=== PATIENT | female | born 1970 | race Caucasian/White ===

== ENCOUNTER → 2017-01-16 | Outpatient (CLI) | payer OTHER | LOC: FIMAGING 17:57 | PROVIDERS: ATTEND General Practice | DX: R05 Cough (principal); R09.89 Other specified symptoms and signs involving the circulatory and respiratory systems ==

== ENCOUNTER 2017-02-01 22:36 | Emergency (ER) | payer OTHER ==
[2017-02-01 22:41] VITALS: TEMP 97.9
[2017-02-01] MEDS ORDERED: NS 1,000 ML IV ONE (22:49)
--- NOTE | 2017-02-01 22:49 | EDPHY ---
H & P Stated Complaint: SOB x several days, chest "constricted" x1h, SAAB HPI/ROS: HPI CHIEF COMPLAINT: Multiple complaints, headache, shortness of breath HISTORY OF PRESENT ILLNESS: This patient very pleasant 38-year-old female denies any significant medical history does not take any daily medications, she presents emergency room at 11 o'clock at night after she has been having a headache pretty consistent for the past month globally in nature throbbing in nature. She tells me over the last year she has had somewhat of an ice pack headache on the left side but over the last month she has had a global headache. Tonight she became flushed without nausea or vomiting she states her whole body felt like a cold sweat she felt associated shortness of breath with this and felt like her lungs were being constricted. She denies significant chest pain. She does tell me that she had some sharp pain under her left posterior scapula. She denies any recent fever. She states that she was recently still sick with a upper respiratory tract infection that settled into her chest she has been over that. She states that she has been dealing with some low lying shortness of breath over the past few weeks she seen her primary care doctor and primary care doctor referred her to [facility] for pulmonary testing also referred her to a neurologist for these headaches. She decided come to the emergency room tonight due to the constellation of feeling slightly flushed, headache, what she describes lung restriction, and a cough. She does additionally tell me that she ran 6 miles today without any difficulty and did not have any chest pain. She also tells me she has had a daily cough. Past Medical History: Denies any medical history Past Surgical History: Denies any recent surgical history Social History: Denies daily use of drugs tobacco or alcohol, raise her children not employed Family History: Noncontributory ROS REVIEW OF SYSTEMS: A comprehensive 10 point review of systems is otherwise negative aside from elements mentioned in the history of present illness. Exam Constitutional appears well nontoxic triage nursing summary reviewed, vital signs reviewed, awake/alert. Eyes normal conjunctivae and sclera, EOMI, PERRLA. HENT normal inspection, atraumatic, moist mucus membranes, no epistaxis, neck supple/ no meningismus, no raccoon eyes. Respiratory clear to auscultation bilaterally, normal breath sounds, no respiratory distress, no wheezing. Cardiovascular rate normal, regular rhythm, no murmur, no edema, distal pulses normal. Gastrointestinal soft, non-tender, no rebound, no guarding, normal bowel sounds, no distension, no pulsatile mass. Genitourinary no CVA tenderness. Musculoskeletal no midline vertebral tenderness, full range of motion, no calf swelling, no tenderness of extremities, no meningismus, good pulses, neurovascularly intact. Skin pink, warm, & dry, no rash, skin atraumatic. Neurologic awake, alert and oriented x 3, AAOx3, moves all 4 extremities equally, motor intact, sensory intact, CN II-XII intact, normal cerebellar, normal vision, normal speech. Psychiatric normal mood/affect. Heme/Lymph/Immune no lymphadenopathy. Differential Diagnosis: Includes but is not limited to in a particular order, pneumonia, bronchitis, asthma, pulmonary embolism, acute coronary syndrome, pneumothorax, migraine headache, intracranial tumor, brain bleed, sinus venous thrombosis Medical Decision Making: Plan for this patient with multiple complaints including shortness of breath, cough, headache, flushed, patient be placed on full line up worker showed have an EKG, check troponin, check D-dimer gentle IV hydration, DuoNeb breathing treatment to see if this improves her sensation of lung stricture and shortness of breath, two view chest x-ray, CT head without contrast. Re-evaluation: EKG interpretation by me on record in [employer] system. Impression time of EKG 2304: This EKG is normal sinus rhythm rate of 72 ST elevation consistent with early Lauren pulp pattern. Otherwise unremarkable EKG normal intervals. No acute ischemic changes seen on this EKG. ED x-ray chest two view: Negative for acute cardiopulmonary disease. Two- view. Normal lung olvera. Normal heart size. Image interpreted by myself. CT scan of the head without IV contrast The results of the study are negative for acute intracranial abnormality. The study was read by Dr. Sanderson. I viewed the images myself on the PACS system. EKG interpretation by me on record in [employer] system. Impression time of EKG 2:22 a.m., this is sinus rhythm at 68 no acute ischemic changes appreciated. Unchanged from previous EKG. 0307AM: ED could re-evaluate the patient she is resting comfortably no acute distress. Blood work has been reviewed CT head reviewed EKGs and troponins reviewed negative D-dimer. Patient's vital signs are stable at this time. She would like to go home she did sleep for while here in emergency room she has no chest pain or shortness of breath at this time. I will refer her to pulmonology for a chronic cough. And dyspnea. No indication to do a CT angiogram at this time of her chest. She is not tachycardic she has no hypoxia and she does not have a positive D-dimer. Recommend close follow up with pulmonology as well as Neurology. For chronic headaches. Source: Patient - Personal History LMP (Females 10-55): Over 28 Days Ago Current Tetanus/Diphtheria Vaccine: Unsure Current Tetanus Diphtheria and Acellular Pertussis (TDAP): Unsure - Medical/Surgical History Hx Asthma: No Hx Chronic Respiratory Disease: No Hx Diabetes: No Hx Cardiac Disease: No Hx Renal Disease: No Hx Cirrhosis: No Hx Alcoholism: No Hx HIV/AIDS: No Hx Splenectomy or Spleen Trauma: No Other PMH: HX: DENIES - Social History Smoking Status: Never smoked Constitutional: Initial Vital Signs Temperature (C) 36.6 C 02/01/17 22:37 Heart Rate 80 02/01/17 22:37 Respiratory Rate 20 02/01/17 22:37 Blood Pressure 133/86 H 02/01/17 22:37 O2 Sat (%) 97 02/01/17 22:37 O2 Delivery Mode Room Air Allergies/Adverse Reactions: Penicillins Allergy (Verified 05/01/14 08:57) Other-Enter Comments Home Medications: Medication Instructions Recorded NK [No Known Home Meds] 01/28/14 Medical Decision Making - Diagnostics Imaging Results: Imaging Impressions Chest X-Ray 02/01/17 22:49 Impression: Stable chest negative for acute cardiopulmonary abnormality. Head CT 02/01/17 23:01 Impression: Normal CT of the head. Specifically, a headache source is not identified. Results called and discussed with Holden Ayon MD on 02/01/2017 at 23:33 - Data Points Laboratory Results: Laboratory Results 02/01/17 22:55 02/01/17 22:55 02/02/17 02/01/17 02/01/17 02:16 22:55 22:55 WBC RBC Hgb Hct MCV MCH MCHC RDW Plt Count MPV Neut % (Auto) Lymph % (Auto) Haines % (Auto) Eos % (Auto) Baso % (Auto) Nucleat RBC Rel Count Absolute Neuts (auto) Absolute Lymphs (auto) Absolute Monos (auto) Absolute Eos (auto) Absolute Basos (auto) Absolute Nucleated RBC Immature Gran % Immature Gran # PT INR APTT D-Dimer Sodium 138 mEq/L mEq/L (134-144) Potassium 4.0 mEq/L mEq/L (3.5-5.2) Chloride 106 mEq/L mEq/L (97-110) Carbon Dioxide 23 mEq/l mEq/l (22-31) Anion Gap 9 mEq/L mEq/L (8-16) BUN 28 mg/dL H mg/dL (7-23) Creatinine 0.8 mg/dL mg/dL (0.6-1.0) Estimated GFR > 60 Glucose 90 mg/dL mg/dL (70-100) Calcium 9.2 mg/dL mg/dL (8.5-10.4) Magnesium 1.8 mg/dL mg/dL (1.6-2.3) Total Bilirubin 0.6 mg/dL mg/dL (0.1-1.4) Conjugated Bilirubin 0.3 mg/dL mg/dL (0.0-0.5) Unconjugated Bilirubin 0.3 mg/dL mg/dL (0.0-1.1) AST 22 IU/L IU/L (14-46) ALT 26 IU/L IU/L (9-52) Alkaline Phosphatase 42 IU/L IU/L (38-126) Creatine Kinase 58 IU/L IU/L (0-156) CK-MB (CK-2) Fraction 1.01 ng/mL ng/mL (0-3.19) Troponin I < 0.012 ng/mL ng/mL < 0.012 ng/mL ng/mL (0-0.034) (0-0.034) NT-Pro-B Natriuret Pep 79 pg/mL pg/mL (0-125) Total Protein 7.5 g/dL g/dL (6.3-8.2) Albumin 4.4 g/dL g/dL (3.5-5.0) Lipase 216.0 IU/L IU/L (23-300) Beta HCG, Qual NEGATIVE 02/01/17 02/01/17 22:55 22:55 WBC 9.30 10^3/uL 10^3/uL (3.80-9.50) RBC 4.43 10^6/uL 10^6/uL (4.18-5.33) Hgb 14.1 g/dL g/dL (12.6-16.3) Hct 40.2 % % (38.0-47.0) MCV 90.7 fL fL (81.5-99.8) MCH 31.8 pg pg (27.9-34.1) MCHC 35.1 g/dL g/dL (32.4-36.7) RDW 13.8 % % (11.5-15.2) Plt Count 266 10^3/uL 10^3/uL (150-400) MPV 10.6 fL fL (8.7-11.7) Neut % (Auto) 51.7 % % (39.3-74.2) Lymph % (Auto) 38.4 % % (15.0-45.0) Haines % (Auto) 7.1 % % (4.5-13.0) Eos % (Auto) 2.0 % % (0.6-7.6) Baso % (Auto) 0.6 % % (0.3-1.7) Nucleat RBC Rel Count 0.0 % % (0.0-0.2) Absolute Neuts (auto) 4.80 10^3/uL 10^3/uL (1.70-6.50) Absolute Lymphs (auto) 3.57 10^3/uL H 10^3/uL (1.00-3.00) Absolute Monos (auto) 0.66 10^3/uL 10^3/uL (0.30-0.80) Absolute Eos (auto) 0.19 10^3/uL 10^3/uL (0.03-0.40) Absolute Basos (auto) 0.06 10^3/uL 10^3/uL (0.02-0.10) Absolute Nucleated RBC 0.00 10^3/uL 10^3/uL (0-0.01) Immature Gran % 0.2 % % (0.0-1.1) Immature Gran # 0.02 10^3/uL 10^3/uL (0.00-0.10) PT 12.4 SEC SEC (12.0-15.0) INR 0.93 (0.83-1.16) APTT 21.7 SEC L SEC (23.0-38.0) D-Dimer < 0.27 ug/mLFEU ug/mLFEU (0.00-0.50) Sodium Potassium Chloride Carbon Dioxide Anion Gap BUN Creatinine Estimated GFR Glucose Calcium Magnesium Total Bilirubin Conjugated Bilirubin Unconjugated Bilirubin AST ALT Alkaline Phosphatase Creatine Kinase CK-MB (CK-2) Fraction Troponin I NT-Pro-B Natriuret Pep Total Protein Albumin Lipase Beta HCG, Qual Medications Given: Discontinued Medications Albuterol/Ipratropium (Duoneb) 3 ml IH EDNOW ONE Stop: 02/01/17 23:03 Last Admin: 02/01/17 23:29 Dose: 3 ml Sodium Chloride (Ns) 1,000 mls @ 0 mls/hr IV ONCE ONE PRN Reason: Wide Open Stop: 02/01/17 22:50 Last Admin: 02/01/17 22:57 Dose: 1,000 mls Departure - Departure Disposition: Home, Routine, Self-Care Clinical Impression: Cough Headache Qualifiers: Headache type: unspecified Headache chronicity pattern: acute headache Intractability: not intractable Qualified Code(s): R51 - Headache Condition: Good Instructions: Acute Cough (ED), Acute Headache (ED) Additional Instructions: 1. Stay well-hydrated drink lots of fluids. 2. Return emergency review of worsening shortness of breath chest pain worsening headache. 3. I do recommend he follow up with pulmonology call their make an appointment 4. Also recommend he follow up with Neurology. Referrals: Ting Melendez MD [Primary Care Provider] - As per Instructions Karthik Gamboa MD [Medical Doctor] - As per Instructions
[2017-02-01 23:01] LABS: % IMMATURE GRANULYOCYTES 0.2 % (0.0-1.1); ABSOLUTE IMMATURE GRANULOCYTES 0.02 10^3/uL (0.00-0.10); ADD DIFF? NO; ADD MORPH? NO; ADD SCAN? NO; ATYPICAL LYMPHOCYTE FLAG 0 (0-99); FRAGMENT RBC FLAG 0 (0-99); HEMATOCRIT 40.2 % (38.0-47.0); HEMOGLOBIN 14.1 g/dL (12.6-16.3); LEFT SHIFT FLG 0 (0-99); LIPEMIA HEMOLYSIS FLAG 90 (0-99); MEAN CELL HEMOGLOBIN 31.8 pg (27.9-34.1); MEAN CELL HEMOGLOBIN CONCENTR. 35.1 g/dL (32.4-36.7); MEAN CELL VOLUME 90.7 fL (81.5-99.8); MEAN PLATELET VOLUME 10.6 fL (8.7-11.7); PLATELET CLUMPS FLAG 0 (0-99); PLATELET COUNT 266 10^3/uL (150-400); RED BLOOD CELL COUNT 4.43 10^6/uL (4.18-5.33); RED CELL DISTRIBUTION WIDTH 13.8 % (11.5-15.2)
[2017-02-01] MEDS ORDERED: IPRATROPIUM/ALBUTEROL 3 ML DEYVIAL IH ONE (23:02)
--- NOTE | 2017-02-01 23:06 | CPEKG ---
Heart Rate: 72 RR Interval: 833 P-R Interval: 160 QRSD Interval: 82 QT Interval: 388 QTC Interval: 425 P [place]: 14 QRS [place]: 59 T Wave [place]: 45 EKG Severity - NORMAL ECG - EKG Impression: SINUS RHYTHM EKG Impression: ST ELEV, PROBABLE NORMAL EARLY REPOL PATTERN Electronically Signed By: Holden Ayon 02-Feb-2017 07:05:26
[2017-02-01 23:10] LABS: INR 0.93 (0.83-1.16); PROTIME(PATIENT) 12.4 SEC (12.0-15.0)
[2017-02-01 23:11] LABS: APTT 21.7 SEC (23.0-38.0)
[2017-02-01 23:15] LABS: ALANINE AMINOTRANSFERASE 26 IU/L (9-52); ALBUMIN 4.4 g/dL (3.5-5.0); ALKALINE PHOSPHATASE 42 IU/L (38-126); ANION GAP 9 mEq/L (8-16); ASPARTATE AMINOTRANSFERASE 22 IU/L (14-46); BILIRUBIN,TOTAL 0.6 mg/dL (0.1-1.4); BILIRUBIN-CONJUGATED 0.3 mg/dL (0.0-0.5); BILIRUBIN-UNCONJUGATED 0.3 mg/dL (0.0-1.1); CALCIUM 9.2 mg/dL (8.5-10.4); CARBON DIOXIDE 23 mEq/l (22-31); CHLORIDE 106 mEq/L (97-110); CREATININE 0.8 mg/dL (0.6-1.0); GLOMERULAR FILTRATION RATE > 60; GLUCOSE 90 mg/dL (70-100); MAGNESIUM 1.8 mg/dL (1.6-2.3); SODIUM 138 mEq/L (134-144); TOTAL PROTEIN 7.5 g/dL (6.3-8.2)
[2017-02-01 23:27] LABS: CREATINE KINASE-MB FRACTION 1.01 ng/mL (0-3.19); TROPONIN I < 0.012 ng/mL (0-0.034)
[2017-02-02 00:34] VITALS: RESP 16
--- NOTE | 2017-02-02 02:23 | CPEKG ---
Heart Rate: 68 RR Interval: 882 P-R Interval: 168 QRSD Interval: 82 QT Interval: 408 QTC Interval: 434 P [place]: 12 QRS [place]: 69 T Wave [place]: 53 EKG Severity - NORMAL ECG - EKG Impression: SINUS RHYTHM Electronically Signed By: Holden Ayon 02-Feb-2017 07:05:26
[2017-02-02 03:26] VITALS: BP 101/64; PULSE 75; O2SAT 95
== END 2017-02-02 03:46 | disposition home or self-care (01) ==
DX: R51 Headache (principal); R05 Cough

== ENCOUNTER → 2017-02-20 | Outpatient (CLI) | payer OTHER | LOC: FIMAGING 10:15 | PROVIDERS: ATTEND Physician Assistant Medical | DX: R51 Headache (principal) ==

== ENCOUNTER → 2017-07-16 | Outpatient (CLI) | payer OTHER | LOC: FIMAGING 11:19 | PROVIDERS: ATTEND Obstetrics & Gynecology | DX: Z12.31 Encounter for screening mammogram for malignant neoplasm of breast (principal) | CPT/HCPCS: G0202 ==

== ENCOUNTER → 2017-07-28 | Outpatient (CLI) | payer OTHER | LOC: CIMAGING 13:20 | PROVIDERS: ATTEND Family Medicine | DX: J98.9 Respiratory disorder, unspecified (principal); R06.2 Wheezing | CPT/HCPCS: 71250-PO ==